=== PATIENT | female | born 1985 | race Caucasian/White ===

== ENCOUNTER 2023-09-22 10:12 | Emergency (ER) | payer OTHER ==
[~2023-09-22] VITALS: Ht 182.9 cm; Wt 72.6 kg
== END 2023-09-22 14:25 | disposition home or self-care (01) ==
LOC: ER 10:13
DX: S90.811A Abrasion, right foot, initial encounter (principal); W22.8XXA Striking against or struck by other objects, initial encounter; Y93.89 Activity, other specified; Y92.89 Other specified places as the place of occurrence of the external cause